=== PATIENT | female | born 1945 | race Caucasian/White ===

== ENCOUNTER → 2016-07-24 | Outpatient (CLI) | payer MEDICARE, OTHER ==
[~2016-07-24] MED LIST: ASPIRIN81 M2 PO; DICYCLOMINE HCL20 MG; EC-NAPROSYN500 MG; HYDROCODON-ACE1 EAC1 PO; LISINOPRIL; LISINOPRIL10 MG PO; METFORMIN HCL500 M1 PO; METHADONE; METHADONE HCL10 MG PO; MULTI-VITAMIN1 TAB; PHENERGAN; PHENERGAN25 M1 PO; REGLAN; SIMVASTATIN20 MG PO; TEMAZEPAM30 MG PO; ZANTAC; ZYRTEC PO
--- NOTE | ~2016-07-24 | MY11 ---
[facility] A Service [facility] RADIOLOGY TEXT RESULTS PATIENT: IVANA JOHNS LOCATION: [facility] : 43 UNIT #: [id number] AGE: [address]: IVANA GE APRN SEX: F ORDER DR: [id number] [place], [place] [address] [id number] O MR#: [id number] Acc #: [id number] NAME: IVANA JOHNS : 1945 SEX: F STUDY DATE/TIME: 07/24/2016 9:52 UNIT: [facility] ROOM: STUDY DESCRIPTION: MY Mammogram Screening Dig Solomon Attending Physician: Ivana Ge A.P.R.N. Referring Physician: Milan Moore M.D. Ordering Physician: Ivana Ge A.P.R.N. Primary Care Physician: Milan Moore M.D. MEDICAL IMAGING REPORT This report is preliminary unless electronic signature is present EXAM Bilateral digital screening mammogram with CAD. INDICATION Routine screening. No current complaints. No family history of breast cancer. COMPARISON 03/06/10, 03/17/09. TECHNIQUE MLO and CC digital views of each breast were obtained. The exam was reviewed with an FDA-approved CAD device. FINDINGS There are scattered fibroglandular densities present. There are no masses or abnormal calcifications. IMPRESSION No change. No evidence of malignancy. BIRADS category 1N. Patients over the age of 40 are entered into a reminder system with target due date for the next mammogram. A result letter will also be sent to the patient. BIRADS: 1 Negative. Dictated by... Arcadio Salcedo M.D. THIS IS AN ELECTRONICALLY VERIFIED REPORT [facility] A Service [facility] RADIOLOGY TEXT RESULTS PATIENT: IVANA JOHNS LOCATION: [facility] : 43 UNIT #: [id number] AGE: [address]: IVANA GE APRN SEX: F ORDER DR: Arcadio Salcedo M.D. at 07/24/2016 3:57 PM Marie TD: 07/24/2016 15:26 JOB #: [id number] MEDICAL IMAGING REPORT Page 1 of 1 COPY
--- NOTE | ~2016-07-24 | BD1 ---
[facility] A Service of [facility] RADIOLOGY TEXT RESULTS PATIENT: IVANA JOHNS LOCATION: [facility] : 43 UNIT #: [id number] AGE: [address]: IVANA GE APRN SEX: F ORDER DR: [id number] [facility] [address] [place], [place] [address] [id number] O MR#: [id number] Acc #: [id number] NAME: IVANA JOHNS : 1945 SEX: F STUDY DATE/TIME: 07/24/2016 10:23 UNIT: [facility] ROOM: STUDY DESCRIPTION: BD Dexa Bone Dens 1+ Site Attending Physician: Ivana Ge A.P.R.N. Referring Physician: Milan Moore M.D. Ordering Physician: Ivana Ge A.P.R.N. Primary Care Physician: Milan Moore M.D. MEDICAL IMAGING REPORT This report is preliminary unless electronic signature is present EXAM Bone density spine hip, 07/24/2016 HISTORY Menopause. Metal in lower back. FINDINGS Bone density scanning performed proximal left femur and left forearm. No comparisons. Proximal left femur total bone mineral density 0.867 g/cm2 for T-score 0.6 standard deviations below mean for reference population normal young individuals and Z-score 1.0 standard deviations above the mean for age-match population. In the left femoral neck, the bone mineral density is 0.705 g/cm2 for T-score 1.3 standard deviations below mean for reference population normal young individuals and Z-score 0.6 standard deviations above the mean for age-match population. In the left forearm radius one-third station, the bone mineral density is 0.649 g/cm2 for T-score 0.6 standard deviation below mean for reference population normal young individuals and Z-score 1.7 standard deviations above the mean for age-match population. IMPRESSION 1. Osteopenia in the left femoral neck. Patient felt to be at increased risk for fracture. Treatment options may be considered. Continued surveillance is recommended. Dictated by... Riki Solis M.D. THIS IS AN ELECTRONICALLY VERIFIED REPORT Riki Solis M.D. at 07/25/2016 6:33 PM JSK/psc [facility]. [facility] A Service of [facility] RADIOLOGY TEXT RESULTS PATIENT: IVANA JOHNS LOCATION: [facility] #: [id number] : 43 UNIT #: [id number] AGE: [address]: IVANA GE APRN SEX: F ORDER DR: TD: 07/24/2016 22:56 JOB #: [id number] MEDICAL IMAGING REPORT Page 1 of 1 COPY
== END | disposition home or self-care (01) ==
LOC: CWCC 09:28
DX: Z12.31 Encounter for screening mammogram for malignant neoplasm of breast (principal); Z78.0 Asymptomatic menopausal state
CPT/HCPCS: 77080; G0202

== ENCOUNTER → 2016-08-07 | Day surgery (SDC) | payer MEDICARE, OTHER ==
--- NOTE | ~2016-08-07 | CR219 ---
[facility] A Service [facility] RADIOLOGY TEXT RESULTS PATIENT: IVANA JOHNS LOCATION: [facility] : 43 UNIT #: [id number] AGE: [address]: Oneil Fuentes MD SEX: F ORDER DR: [id number] [facility] [address] [place], [place] [address] [id number] O MR#: [id number] Acc #: [id number] NAME: IVANA JOHNS : 1945 SEX: F STUDY DATE/TIME: 08/07/2016 11:33 UNIT: [facility] ROOM: STUDY DESCRIPTION: CR Sacrum and Coccyx Min 2 Vie Attending Physician: Oneil Fuentes M.D. Ordering Physician: Oneil Fuentes M.D. Primary Care Physician: Milan Moore M.D. MEDICAL IMAGING REPORT This report is preliminary unless electronic signature is present EXAM Sacrum and coccyx intraoperative series, 08/07/16. INDICATION Sacral nerve stimulator placement. TECHNIQUE Two small field of view spot fluoroscopic images from an intraoperative procedure performed 08/07/[address] Fuentes are submitted for review. COMPARISON No comparisons. FINDINGS Notes indicate 57 seconds of fluoroscopy time was used in the case. Two images from the procedure were saved to the PACS. Images demonstrate an operative procedure involving the lumbosacral spine performed by Dr. Fuentes. Please see the operative report of the surgeon for further details. IMPRESSION 1. Operative procedure performed by Dr. Fuentes. Please refer to the operative report of the surgeon for further details. 2. Notes indicate approximately 57 seconds of fluoroscopy time was used in the case. Two images from the procedure were saved to the PACS system. Dictated by... Dionicio Jackson M.D. THIS IS AN ELECTRONICALLY VERIFIED REPORT Dionicio Jackson M.D. at 08/07/2016 10:17 PM [facility] A Service [facility] RADIOLOGY TEXT RESULTS PATIENT: IVANA JOHNS LOCATION: [facility] #: [id number] : 43 UNIT #: [id number] AGE: [address]: Oneil Fuentes MD SEX: F ORDER DR: MANUEL/desi TD: 08/07/2016 19:47 JOB #: [id number] MEDICAL IMAGING REPORT Page 1 of 1 COPY
--- NOTE | ~2016-08-07 | EKG ---
PATIENT: IVANA JHONS UNIT #: [id number] Ventricular Rate: 74 BPM Atrial Rate: 74 BPM P-R Interval: 162 ms QRS Duration: 70 ms Q-T Interval: 400 ms QTC Calculation(Bezet): 444 ms P [place]: 33 degrees Calculated R [place]: -36 degrees Calculated T [place]: 14 degrees Diagnosis Line: Normal sinus rhythm Diagnosis Line: Left axis deviation Diagnosis Line: Minimal voltage criteria for LVH, may be normal Diagnosis Line: variant Diagnosis Line: Septal infarct , age undetermined Diagnosis Line: Inferior infarct , age undetermined Diagnosis Line: Abnormal ECG Diagnosis Line: No previous ECGs available Diagnosis Line: Confirmed by QUIRINO FLORES MD ([id number]) on Diagnosis Line: 08/09/2016 3:39:19 PM INTERPRETING MD: ELIESER
--- NOTE | ~2016-08-07 | OR ---
Unit #: [id number] #: [id number] Patient: IVANA JOHNS [id number] [facility]. [address] [place], [place] [address] [id number] O MR#: [id number] NAME: IVANA JOHNS ROOM: Date of Procedure: 08/07/2016 Admission Date: 08/07/2016 Surgeon: Oneil Fuentes M.D. : 1945 Attending Physician: Oneil Fuentes M.D. Primary Care Physician: Milan Domínguez M.D. OPERATIVE REPORT JOB NOTE: CC: DR. DOMÍNGUEZ PREOPERATIVE DIAGNOSIS Urge incontinence. POSTOPERATIVE DIAGNOSIS Urge incontinence. PROCEDURE PERFORMED Right stage I and stage II InterStim placement. ANESTHESIA General. DESCRIPTION OF PROCEDURE After informed consent, she was taken to the operating room, placed under general anesthetic, positioned prone. Her back and buttocks were prepped and draped in usual sterile fashion. Using fluoroscopy and bony landmarks, the S3 foramen on the right was located and stimulation. She had plantar flexion of the great toe and bellowing of the buttocks. Using the stylet introducer, the lead was placed alongside the nerve and with stimulation, she had all 4 electrodes with a positive motor response. Anterior-posterior as well as lateral film images were saved. The lead was then tunneled over to a pocket that was created on the right buttock using sharp and blunt dissection. This pocket was irrigated out with copious amount of antibiotic irrigation prior to placing the lead or the generator in the pocket. The generator was connected to the lead and was then synched to her remote and the wounds were closed in multiple layers using Vicryl and Monocryl suture. Dermabond was placed across the incision. All counts were correct at the end of the procedure. She tolerated the procedure well. She will be discharged home and return to see me as an outpatient. Dictated by... Nova DailyB/modl TD: 08/08/2016 01:50 JOB #: [id number] Unit #: [id number] #: [id number] Patient: IVANA JOHNS OPERATIVE REPORT Page 1 of 1 X Oneil Fuentes MD PROCEDURE OPERATIVE NOTE
[2016-08-07 10:37] LABS: BUN/CREATININE RATIO 17.77; CALCIUM SERUM 9.5 mg/dL (8.4-10.2); CREATININE SERUM 0.9 mg/dL (0.6-1.4); GLOM FILT RATE Estimated 63.9 mL/min (>60); POTASSIUM 4.2 mmol/L (3.5-5.1)
== END | disposition home or self-care (01) ==
LOC: CSUR 09:24
PROVIDERS: Urology
DX: N39.41 Urge incontinence (principal); K21.9 Gastro-esophageal reflux disease without esophagitis; E11.9 Type 2 diabetes mellitus without complications; F41.9 Anxiety disorder, unspecified; G89.29 Other chronic pain; M54.9 Dorsalgia, unspecified; I10 Essential (primary) hypertension; Z87.01 Personal history of pneumonia (recurrent); Z88.8 Allergy status to other drugs, medicaments and biological substances; Z79.84 Long term (current) use of oral hypoglycemic drugs; Z79.82 Long term (current) use of aspirin; Z79.891 Long term (current) use of opiate analgesic; Z79.899 Other long term (current) drug therapy; Z98.41 Cataract extraction status, right eye; Z98.42 Cataract extraction status, left eye; Z90.49 Acquired absence of other specified parts of digestive tract; Z90.710 Acquired absence of both cervix and uterus; Z98.890 Other specified postprocedural states
CPT/HCPCS: 72220; 77003; 80048; 82947; 93005; C1767; C1778; C1787; J0690; J1885; J2250; J2270; J2710

== ENCOUNTER 2016-09-17 12:00 | Emergency (ER) | payer MEDICARE, OTHER ==
[~2016-09-17] VITALS: Ht 162.6 cm; Wt 72.0 kg
--- NOTE | ~2016-09-17 | EKG ---
PATIENT: IVANA JOHNS UNIT #: [id number] Ventricular Rate: 93 BPM Atrial Rate: 93 BPM P-R Interval: 136 ms QRS Duration: 70 ms Q-T Interval: 368 ms QTC Calculation(Bezet): 457 ms P [place]: 26 degrees Calculated R [place]: -32 degrees Calculated T [place]: 19 degrees Diagnosis Line: Normal sinus rhythm Diagnosis Line: Left axis deviation Diagnosis Line: Anteroseptal infarct (cited on or before Diagnosis Line: 07-AUG-2016) Diagnosis Line: Abnormal ECG Diagnosis Line: When compared with ECG of 07-AUG-2016 09:50, Diagnosis Line: Questionable change in initial forces of Anterior Diagnosis Line: leads Diagnosis Line: Non-specific change in ST segment in Lateral leads Diagnosis Line: Confirmed by CONSTANTINO REES MD ([id number]) on Diagnosis Line: 09/19/2016 7:11:05 AM INTERPRETING : SAIRA
== END 2016-09-17 12:15 | disposition left against medical advice (07) ==
LOC: CED 12:00
DX: Z53.21 Procedure and treatment not carried out due to patient leaving prior to being seen by health care provider (principal)
CPT/HCPCS: 93005